=== PATIENT | female | born 1990 | race Caucasian/White ===

== ENCOUNTER 2025-03-19 10:27 | Outpatient (CLI) | payer OTHER, SELFPAY ==
--- NOTE | ~2025-03-19 | US_ITS ---
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 Findings: Uterus: Uterus anteverted 10.5 x 3.9 x 5.2 cm. . Endometrium 12 mm, no increased flow. Right Ovary:Right ovary 4.9 x 2.5 x 2.7 cm, no adnexal mass, normal flow, dominant follicle 2.2 x 1.7 cm. Left Ovary: Left ovary 1.6 x 1.3 x 1.6 cm, no adnexal mass, normal flow. Free Fluid: None Impression: 1. Unremarkable exam Reviewed, dictated and finalized at location [facility] Impression: 1. Unremarkable exam
== END 2025-03-19 10:28 | disposition home or self-care (01) ==
LOC: MICIMG 10:29
PROVIDERS: PCP Internal Medicine
DX: N92.6 Irregular menstruation, unspecified (principal)
CPT/HCPCS: 76856